=== PATIENT | male | born 1960 | race Caucasian/White ===

== ENCOUNTER 2016-10-09 17:35 | Emergency (ER) | payer BC ==
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
[2016-10-09] MEDS ORDERED: TDAP ADULT 0.5 ML INJ (BOOSTRIX) IM ONE (18:09)
[2016-10-09] MEDS ORDERED: LIDOCAINE 2% JELLY 20 ML (UROJECT) ONE (19:09)
[2016-10-09] MEDS ORDERED: LIDOCAINE 2% JELLY 20 ML (UROJECT) UR ONE (19:46)
[2016-10-09] MEDS ORDERED: OXYCODONE/APAP 5/325MG PREPACK#4 BTL TAKEHOME ONE (20:59)
[2016-10-09 21:49] VITALS: RESP 16
[2016-10-09] MEDS ORDERED: OXYCODONE/APAP 5/325 TAB ONE (22:35)
[2016-10-09] MEDS ORDERED: OXYCODONE/APAP 5/325 TAB PO ONE (22:42)
[2016-10-09 22:47] VITALS: O2SAT 96
[2016-10-09 22:48] VITALS: PULSE 63
[2016-10-09 22:49] VITALS: BP 111/65; TEMP 98.6
== END 2016-10-09 22:49 | disposition home or self-care (01) ==
LOC: EDUNIT#
DX: S06.0X0A Concussion without loss of consciousness, initial encounter (principal); M54.5 Low back pain; M25.512 Pain in left shoulder; V18.2XXA Unspecified pedal cyclist injured in noncollision transport accident in nontraffic accident, initial encounter; Z23 Encounter for immunization; Z79.82 Long term (current) use of aspirin

== ENCOUNTER → 2016-10-15 | Outpatient (CLI) | payer BC | LOC: BMCIMAGING 09:44 | PROVIDERS: ATTEND Family Medicine | DX: S43.102A Unspecified dislocation of left acromioclavicular joint, initial encounter (principal) ==